=== PATIENT | female | born 1955 | race Caucasian/White ===

== ENCOUNTER → 2023-10-02 11:17 | Outpatient (REF) | payer MEDICARE, BC, SELFPAY | LOC: DHCBC HW 11:17 | PROVIDERS: ATTENDING PHYSICIAN Internal Medicine Cardiovascular Disease; FAMILY PHYSICIAN Internal Medicine | DX: I48.19 Other persistent atrial fibrillation (principal); I50.32 Chronic diastolic (congestive) heart failure | CPT/HCPCS: 93306 ==

== ENCOUNTER → 2024-04-17 10:27 | Outpatient (REF) | payer MEDICARE, BC, SELFPAY ==
[2024-04-17 11:35] LABS: % Basophils 0.5 % (0-2); % Eosinophils 0.5 % (0-6); % Immature Granulocytes 0.3 % (0-0.5); % Lymphocytes 46.4 % (20.5-51.1); % Monocytes 10.2 % (1.7-9.3); % Neutrophils 42.1 % (42.2-75.2); Absolute Basophils 0.1 10^3/uL (0-0.2); Absolute Eosinophils 0.1 10^3/uL (0-0.7); Absolute Lymphocytes 4.3 10^3/uL (1.2-3.4); Absolute Monocytes 0.9 10^3/uL (0.1-0.6); Absolute Neutrophils 3.9 10^3/uL (1.4-6.5); Hematocrit 47.7 % (37.0-47.0); Hemoglobin 16.7 g/dL (12.0-16.0); Mean Corpuscular Hgb 33.2 pg (27.0-31.0); Mean Corpuscular Volume 94.8 fL (81.0-99.0); Nucleated Red Blood Cells % 0 %; Platelet Count 151 10^3/uL (130-400); Red Blood Cell Count 5.03 10^6/uL (4.20-5.40); Red Cell Dist. Width 13.1 % (11.5-14.5); White Blood Cell Count 9.2 10^3/uL (4.8-10.8)
[2024-04-17 12:22] LABS: ALT (SGPT) 30 U/L (0-35); AST (SGOT) 66 U/L (14-36); Albumin 3.4 g/dl (3.5-5.0); Alkaline Phosphatase 197 U/L (38-126); Blood Urea Nitrogen 20 mg/dl (7-17); Calcium 9.6 mg/dl (8.4-10.2); Carbon Dioxide 38 mmol/L (22-30); Chloride 92 mmol/L (98-107); Glucose 141 mg/dl (70-99); Iron 165 ug/dl (37-170); Potassium 4.1 mmol/L (3.5-5.1); Sodium 136 mmol/L (135-145); Total Bilirubin 1.1 mg/dl (0.2-1.3); Total Protein 6.7 g/dl (6.3-8.2); Uric Acid 12.5 mg/dl (2.5-6.2)
[2024-04-17 12:31] LABS: Percent Saturation 79 % (20-50); Total Iron Binding Capacity 208 ug/dl (265-497)
[2024-04-17 12:39] LABS: Free T4 1.18 ng/dl (0.78-2.19)
[2024-04-17 12:53] LABS: TSH 1.76 uIU/ml (0.47-4.68)
[2024-04-17 14:27] LABS: Glycohemoglobin (HgbA1c) 5.2 % (4.0-5.6)
== END ==
LOC: HWLAB 10:27
PROVIDERS: ATTENDING PHYSICIAN Nurse Practitioner Gerontology; FAMILY PHYSICIAN Internal Medicine
DX: I50.32 Chronic diastolic (congestive) heart failure (principal); E79.0 Hyperuricemia without signs of inflammatory arthritis and tophaceous disease; R73.09 Other abnormal glucose; D50.9 Iron deficiency anemia, unspecified; M79.89 Other specified soft tissue disorders; E03.9 Hypothyroidism, unspecified
CPT/HCPCS: 36415; 80053; 82728; 83036; 83540; 83550; 84439; 84443; 84550; 85025

== ENCOUNTER → 2024-08-28 09:54 | Outpatient (REF) | payer MEDICARE, BC, SELFPAY | LOC: RAD 09:54 | PROVIDERS: ATTENDING PHYSICIAN Nurse Practitioner Gerontology; FAMILY PHYSICIAN Internal Medicine | DX: R29.898 Other symptoms and signs involving the musculoskeletal system (principal) | CPT/HCPCS: 93922; 93925 ==

== ENCOUNTER 2024-10-08 08:20 | Inpatient (IN) | payer MEDICARE, BC, SELFPAY ==
[2024-10-06 18:28] VITALS: BP 109/78
--- NOTE | 2024-10-06 18:59 | ED.GENMED ---
History of Present Illness
General
Chief Complaint: Musculo-Skeletal Complaint
Time Seen by Provider: 10/06/24 18:59
History of Present Illness
History of Present Illness:
TIME OF INITIAL ENCOUNTER: 7 PM
HPI: Patient presents with nontraumatic left wrist pain. She first noted discomfort 4 days ago. Today she noted more of a rash and increased pain with movement. She is not a diabetic. She does not have fevers. She is found to be tachycardic and
states she is in permanent A-fib on Eliquis.
EXAM:
GENERAL: Well appearing in no distress but appears to be bothered by the left wrist
HEENT: Moist oral mucosa
CARDIOVASCULAR: No murmurs, tachycardic heart rate, irregular rhythm, No chest wall tenderness
PULMONARY: No respiratory distress, breath sounds are clear and equal
ABDOMEN: Soft with no peritoneal signs, no tenderness
NEUROLOGIC: Excellent strength all extremities, no coordination deficits
PSYCHIATRIC: Appropriate mental status, normal insight and judgement
EXTREMITIES: Markedly decreased active range of motion due to pain at the left wrist, edema noted as well
SKIN: Marked warmth and erythema noted primarily at the left wrist more so on the volar aspect that extends to left mid forearm
NUMBER AND COMPLEXITY OF PROBLEMS ADDRESSED AT THE ENCOUNTER
� Chronic conditions affecting care: [facility], cardiomyopathy, high blood pressure, has had DVT
� Acute Exacerbation and/or Progression of Chronic Illness: This is an acute problem
� Differential Diagnosis includes: Cellulitis, low suspicion for joint infection, bacteremia (tachycardic)
AMOUNT AND/OR COMPLEXITY OF DATA TO BE REVIEWED AND ANALYZED
� I performed an independent evaluation of and my interpretation is:
EKG:
CT:
X-rays: I personally viewed left wrist x-ray which shows no acute abnormality and no clear sign of osteomyelitis
Laboratory Studies: White count 10.8, hemoglobin 11.8, 1.5, CRP 127
Other:
� Review of other/old records: The patient was admitted in the past with ischemic bowel status postresection and VDRF
� Clinical information was obtained by an independent historian: I spoke to daughter at bedside
� Prescriptions/Medications Considered but not given:
� Further testing considered but not performed:
RISK OF COMPLICATIONS AND/OR MORBIDITY OR MORTALITY OF PATIENT MANAGEMENT
� Social determinants of health affecting care: Lives at home
� Discussion with other providers: Dr. Tomas for admission
� Escalation of care including admission/observation vs risk of discharge considered: The patient is tachycardic, with markedly decreased active range of motion, concerning physical exam findings for cellulitis, and a CRP that is
markedly elevated. Will plan IV antibiotics and admission to the hospital.
ANY OTHER UPDATES:
Past History
Past History
ED Past Medical History: Arrthythmia, Psychiatric (Anxiety, possible DVT) and Other (Ventral hernia)
ED Past Surgical History: Bowel resection and Other ([place] teeth)
Social History
Tobacco: Smoker
Alcohol: None
Drug: None
Personal:
Living: alone
Employment: Not employed
Family History
Family History: Other (Noncontributory)
Phy Exam
Physical Exam
Physical Exam:
See HPI
Course
Orders/Labs/Results
Orders:
Orders
10/06/24 19:11
CR Wrist - Left Min 3 Views Urgent
Comment:
Reason For Exam: eval infection; remote fracture
10/06/24 19:31
Basic Metabolic Panel Urgent
CRP [C-Reactive Protein] Urgent
Complete Blood Count/With Diff Urgent
ESR [Erythrocyte Sed Rate] Urgent
Lactic Acid Q4H
Comment: CANCEL 2nd LACTIC ACID IF 1st LACTIC ACID IS LESS THAN 2
Blood Culture Q30M
SALTY Source: Blood/Venous
Specimen Description:
Blood Culture Q30M
SALTY Source: Blood/Venous
Specimen Description:
10/06/24 19:58
CeFAZolin 1 GRAM [Ancef] 1 gram in 5 ml IV NOW
10/06/24 20:09
Add On- LAB Urgent
Tests Added?: cRP
Abnormal Lab Results
10/06/24
19:31
RBC 3.48 L 10^6/uL
(4.20-5.40)
Hgb 11.8 L g/dL
(12.0-16.0)
Hct 33.9 L %
(37.0-47.0)
MCH 33.9 H pg
(27.0-31.0)
MPV 10.8 H fL
(7.4-10.4)
Absolute Neuts (auto) 7.5 H 10^3/uL
(1.4-6.5)
Absolute Monos (auto) 1.5 H 10^3/uL
(0.1-0.6)
Lymphocytes % 17.1 L %
(20.5-51.1)
Monocytes % 13.4 H %
(1.7-9.3)
Sodium 131 L mmol/L
(135-145)
Chloride 92 L mmol/L
(98-107)
Carbon Dioxide 33 H mmol/L
(22-30)
BUN 19 H mg/dl
(7-17)
Glucose 133 H mg/dl
(70-99)
C-Reactive Protein 126.90 H mg/L
(0.0-10.00)
10/06/24 19:31
10/06/24 19:31
Vital Signs
Initial and Last Documented VS:
Initial Vital Signs
Temp Pulse Resp BP Pulse Ox
36.8 C 105 16 109/78 99
10/06/24 18:28 10/06/24 18:28 10/06/24 18:28 10/06/24 18:28 10/06/24 18:28
Last Documented Vital Signs
Temp Pulse Resp BP Pulse Ox
36.8 C 105 16 109/78 99
10/06/24 18:28 10/06/24 18:28 10/06/24 18:28 10/06/24 18:28 10/06/24 18:28
*Critical Care Note
Total Time (30-74mins, 75-104mins- exclusive of procedures): Not Applicable
ED Attending Note
-
Portions of this chart may have been created with voice recognition software.� Occasional wrong word or��sound alike� substitutions may have occurred due to the inherent limitations of voice recognition software.
Discharge Plan
Departure
Patient Disposition: Admit
Date of Disposition: 10/06/24
Time of Disposition: 20:50
Presentation/result/management discussed w/ accepting MD/DO: Hospitalist
Discharge Problem:
Cellulitis of left upper extremity
Prescriptions:
No Action
cyanocobalamin (vitamin B-12) 1,000 MCG tablet
1,000 mcg PO DAILY
folic acid 1 MG tablet
1 mg PO DAILY
Eliquis 5 MG tablet
5 mg PO BID
therapeutic multivitamin Tablet
1 tab PO DAILY
midodrine 5 mg Tablet
5 mg PO DAILYPRN PRN (Reason: blood pressure)
digoxin 125 mcg (0.125 mg) Tablet
125 mcg PO DAILY
furosemide 20 mg Tablet
20 mg PO DAILY
metoprolol succinate 25 mg Tablet Extended Release 24 Hr
25 mg PO DAILY
cholecalciferol (vitamin D3) 25 mcg (1,000 unit) Tablet
25 mcg PO DAILY
ferrous sulfate [FeroSul] 325 mg (65 mg iron) Tablet
325 mg PO DAILY Qty: 0 0RF
Referrals:
Donta Villa MD [Family Provider] -
Interventions
Interventions:
*Risk Screen - Suicide Last Done: 10/06/24 18:31
*General Assessment Last Done: 10/06/24 18:39
*Neglect/Abuse Screening Last Done: 10/06/24 18:31
*ED COVID-19 Vaccine History Last Done: 10/06/24 18:39
ED-Musculoskeletal Assessment Last Done: 10/06/24 18:39
Discharge Date and Time
Print Language: POLISH
[2024-10-06 19:53] LABS: % Basophils 0.2 % (0-2); % Immature Granulocytes 0.2 % (0-0.5); % Lymphocytes 17.1 % (20.5-51.1); % Monocytes 13.4 % (1.7-9.3); % Neutrophils 69.1 % (42.2-75.2); Absolute Lymphocytes 1.9 10^3/uL (1.2-3.4); Absolute Monocytes 1.5 10^3/uL (0.1-0.6); Absolute Neutrophils 7.5 10^3/uL (1.4-6.5); Hematocrit 33.9 % (37.0-47.0); Hemoglobin 11.8 g/dL (12.0-16.0); Mean Corp Hgb Conc. 34.8 g/dL (33.0-37.0); Mean Corpuscular Hgb 33.9 pg (27.0-31.0); Mean Corpuscular Volume 97.4 fL (81.0-99.0); Mean Platelet Volume 10.8 fL (7.4-10.4); Nucleated Red Blood Cells % 0 %; Platelet Count 155 10^3/uL (130-400); Red Blood Cell Count 3.48 10^6/uL (4.20-5.40); Red Cell Dist. Width 13.1 % (11.5-14.5); White Blood Cell Count 10.8 10^3/uL (4.8-10.8)
[2024-10-06 20:05] LABS: Lactic Acid 1.5 mmol/L (0.7-2.0)
[2024-10-06 20:10] LABS: Blood Urea Nitrogen 19 mg/dl (7-17); Carbon Dioxide 33 mmol/L (22-30); Chloride 92 mmol/L (98-107); Glucose 133 mg/dl (70-99); Potassium 3.8 mmol/L (3.5-5.1); Sodium 131 mmol/L (135-145); eGFR > 60.00
[2024-10-06] MEDS: ANCEF 5 IV (20:35)
[2024-10-06 21:01] LABS: Erythrocyte Sed Rate 2 mm/hour (0-20)
--- NOTE | 2024-10-06 21:22 | HPS.HSE ---
Family Physician
-
Family Physician: Donta Villa
Chief Complaint
-
Left wrist redness and pain as well as swelling
History of Present Illness
This is a 69-year-old female with past medical history of persistent atrial fibrillation on Eliquis and rate control, she also has dilated cardiomyopathy, orthostatic hypotension, CKD presenting to the emergency department with left wrist swelling.
Patient report onset of symptom 1 day ago. She has a prior wrist fracture several years ago. She denies any incident injury, falls or twist. She denies any insect bites. She has not had any fevers or chills. When she arose this morning she saw
increased redness and swelling. She decided to come to the emergency department for evaluation.
Patient notes that she has been having difficulty walking due to the pain as she uses a walker and she has been sitting with increased swelling in her legs.
In the emergency department she was afebrile, blood pressure was 110/78 with a pulse of 85, respiratory rate was 16 and she was satting 98% on room air. CBC was unremarkable. Electrolytes BUN/creatinine were all in the normal range. X-ray shows
no injuries
Medical History
Past Medical History
Past Medical History: Reports Other (PMH HTN, CKD 3B, A-fib, DVT/PE 07/24/20202014, COPD, GERD, migraines, impaired vision, anxietyhypoxic/hypercapnic respiratory failure requiring mechanical vent, health care associated pneumonia with E. coli ,
COPD exacerbation cardiogenic shock with A-fib/cardioversion 09/22 requiring pressor suppor)
Past Surgical History: Reports Other ([place] teeth extraction, cataracts, bronchoscopy 10/02/2022)
Social History
Tobacco: Smoker (1/2 pack/day times 40 years)
Alcohol: Daily (Drinks 3 to 4 ounces gin and tonic daily +2 ounces of Yohana -last drink 09/18/2022)
Drug: None
Personal: Single
Living: Alone
Employment: Retired
Family History
Family History: Not pertinent and Other (Father age 38 complications amputation)
Allergies / Home Medications
Allergies reflects when Allergies were last updated in [facility]-box.
Home Medications with original date entered in boo-box
Allergy/Medication List:
Allergies
Allergy/AdvReac Type Severity Reaction Status Date / Time
adhesive Allergy Unknown Verified 10/14/22 19:06
latex Allergy Rash Verified 10/14/22 19:06
Home Medications
apixaban 5 mg tablet (Eliquis) 5 mg PO BID Blood clot prevention/tx 10/15/16
cyanocobalamin (vitamin B-12) 1,000 mcg tablet 1,000 mcg PO DAILY Supplement 10/15/16
folic acid 1 mg tablet 1 mg PO DAILY Supplement 10/15/16
therapeutic multivitamin 1 tab PO DAILY Supplement 10/14/22
ferrous sulfate 325 mg (65 mg iron) tablet (FeroSul) 325 mg PO DAILY #0 tabs 11/09/22
cholecalciferol (vitamin D3) 25 mcg (1,000 unit) tablet 25 mcg PO DAILY 10/06/24
digoxin 125 mcg (0.125 mg) tablet 125 mcg PO DAILY 10/06/24
furosemide 20 mg tablet 20 mg PO DAILY 10/06/24
metoprolol succinate 25 mg tablet,extended release 24 hr 25 mg PO DAILY 10/06/24
midodrine 5 mg tablet 5 mg PO DAILYPRN PRN blood pressure 10/06/24
Review of Systems
-
History Source: Patient
Constitutional: Reports No Symptoms
EENT: Reports No Symptoms
Respiratory: Reports No Symptoms
Cardiac: Reports No Symptoms
Abdomen/GI: Reports No Symptoms
Musculoskeletal: Reports Joint Pain and Joint Swelling
Skin: Reports Rash
Neurological: Reports No Symptoms
Endocrine: Reports No Symptoms
Hematologic/Lymphatic: Reports No Symptoms
Psych: Reports No Symptoms
Physical Exam
Vital Signs
Vital Signs
Temp Pulse Resp BP Pulse Ox
98.3 F 105 16 109/78 99
10/06/24 18:28 10/06/24 18:28 10/06/24 18:28 10/06/24 18:28 10/06/24 18:28
Physical Exam
General: Well Developed, Well Nourished, No Apparent Distress and Comfortable
HEENT: NormoCephalic, Anicteric, Moist mucous membranes and Atraumatic
Respiratory: Clear
Cardiac: S1/S2 and Regular Rhythm
Breast: Deferred by me
GI: Soft, Non Tender, Non Distended and Normal Bowel Sounds
Rectal: Deferred by Provider
Genito-urinary: Deferred by me
Musculoskeletal: No Clubbing, No Cyanosis, Edema, Left Lower Extremity and Edema, Right Lower Extremity
Skin: Warm and Rash (Left hand erythema, mild edema, she has normal range of motion on the wrist, no effusion, no induration or abscess. )
Neuro: AO x 3 and Nonfocal/grossly intact
Hematologic/Lymphatic: No Lymphadenopathy
Psych: Calm
Laboratory Results
-
10/06/24 19:31
10/06/24 19:31
Laboratory Results
Lactic Acid 1.5 mmol/L (0.7-2.0) 10/06/24 19:31
Lactic Acid Cancelled 10/06/24 19:31
Data Reviewed
-
Diagnostic Radiology: Image Personally Visualized and interpreted
Lab Data: Labs Reviewed by me
Old Records: Reviewed
Impression/Plan
-
IMPRESSION:
69-year-old female with history of persistent atrial fibrillation on anticoagulation, dilated cardiomyopathy, chronically on digoxin and anticoagulation, polycythemia vera, presenting to the emergency department with acute onset of left hand and
wrist erythema and mild swelling consistent with acute cellulitis. The joint itself does not appear to be inflamed without any reduced to range of motion or effusion. X-ray is negative for any injury. She is afebrile, hemodynamically stable and
has no leukocytosis.
PLAN:
1. Cellullitis
- admit to med/surg observation
- blood cultures if spike fever
- given no recent abx or hospitalizations and no diabetes, will start cefazolin for now
- elevate left hand
- pain control
2. Permanent AFIB
- continue digoxin
- continue metoprolol
- continue eliquis
3. 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 No weight gain
- continue lasix 20 daily
- continue metoprolol
- midodrine prn
DVT PPX - on apixaban
Code status - full code
[2024-10-06] MEDS: ELIQUIS 5 MG PO (21:29)
[2024-10-06 22:40] VITALS: BP 101/67; BMI 23.5
[2024-10-07 00:10] VITALS: BMI 23.5
--- NOTE | 2024-10-07 01:09 | PTCARENOTE ---
Pt received from ER [email or web address] able to make her needs known.Denies pain at this time.Left hand elevated on a pillow. Pt oriented to room and call mackenzie in reach.Plan of care continued.
[2024-10-07] MEDS: ANCEF 10 IV ×3 (05:09→19:39)
[2024-10-07 06:00] VITALS: BMI 23.7
[2024-10-07 07:00] VITALS: BP 100/65
[2024-10-07 07:45] LABS: Blood Urea Nitrogen 17 mg/dl (7-17); Calcium 8.3 mg/dl (8.4-10.2); Carbon Dioxide 32 mmol/L (22-30); Chloride 100 mmol/L (98-107); Estimated Creatinine Clearance 74 ml/min; Glucose 87 mg/dl (70-99); Hematocrit 29.4 % (37.0-47.0); Hemoglobin 10.4 g/dL (12.0-16.0); Mean Corp Hgb Conc. 35.4 g/dL (33.0-37.0); Mean Corpuscular Hgb 34.3 pg (27.0-31.0); Mean Platelet Volume 11.4 fL (7.4-10.4); Platelet Count 131 10^3/uL (130-400); Potassium 3.6 mmol/L (3.5-5.1); Red Blood Cell Count 3.03 10^6/uL (4.20-5.40); Sodium 132 mmol/L (135-145); White Blood Cell Count 8.1 10^3/uL (4.8-10.8); eGFR > 60.00
[2024-10-07] MEDS: VITAMIN D3 (cholecalciferol) 25 MCG PO (08:35)
[2024-10-07] MEDS: TOPROL XL 25 MG PO (08:35)
[2024-10-07] MEDS: THERAGRAN 1 TABLET PO (08:35)
[2024-10-07] MEDS: LASIX 20 MG PO (08:35)
[2024-10-07] MEDS: FEOSOL 325 MG PO (08:35)
[2024-10-07] MEDS: ELIQUIS 5 MG PO ×2 (08:35→19:39)
[2024-10-07] MEDS: VITAMIN B-12 1000 MCG PO (08:35)
[2024-10-07] MEDS: FOLVITE 1 MG PO (08:36)
--- NOTE | 2024-10-07 11:03 | W.PN.HOSP.TC ---
Today's Communication/Plan
-
Monitor vital signs see plan
Continue antibiotics
Monitor symptoms closely
ID and orthopedics evaluation
Uric acid
Assessment / Plan
Assessment / Plan
General: Well Developed, Well Nourished, No Apparent Distress and Comfortable
HEENT: NormoCephalic, Anicteric, Moist mucous membranes and Atraumatic
Respiratory: Clear
Cardiac: S1/S2 and Regular Rhythm
GI: Soft, Non Tender, Non Distended and Normal Bowel Sounds
Musculoskeletal: No Clubbing, No Cyanosis, Edema, Left Lower Extremity and Edema, Right Lower Extremity
Skin: Warm and Rash (Left hand/wrist erythema, Limited range of motion )
Neuro: AO x 3 and Nonfocal/grossly intact
Psych: Calm
Cellullitis
Left wrist/hand erythema and swelling with possible cellulitis
would need to monitor closely for septic arthritis
Continue with antibiotics
Consult infectious disease and orthopedics given hand swelling and pain with limited motion
- given no recent abx or hospitalizations and no diabetes, cw ancef for now; low threshold for escalating abx
CXR noted; elevated CRP
consider MRI if doesnt improve
no hx of gout per patient; check uric acid
- elevate left hand
- pain control
Permanent AFIB
- continue digoxin
- continue metoprolol
- continue eliquis
hyponatremia
montior
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 No weight gain
- continue lasix 20 daily
- continue metoprolol
- midodrine prn
Anemia
Continue to monitor
DVT PPX - on apixaban
Code status - full code
I spent a total of 52 minutes with the patient or on the floor. More than 50% of this time involved counseling and coordination of care.
Anticipated Discharge: > 48 hours
Subjective/Interval History
-
Date of Service: October 07, 2024
has some pain
Objective Data
-
Labs:
Laboratory Results
10/07/24
07:04
WBC 8.1
Hgb 10.4 L
Hct 29.4 L
Plt Count 131
Sodium 132 L
Potassium 3.6
Chloride 100
Carbon Dioxide 32 H
BUN 17
Creatinine 0.7
Glucose 87
Calcium 8.3 L
Vital Signs:
Vital Signs
Temp Pulse Resp BP Pulse Ox
99.1 F 96 18 119/66 95
10/07/24 07:00 10/07/24 08:35 10/07/24 07:00 10/07/24 08:35 10/07/24 08:40
I&O
10/06/24 10/07/24 10/08/24
06:59 06:59 06:59
Intake Total 240 / 240
Balance 240 / 240
--- NOTE | 2024-10-07 11:53 | CON.ORTHO ---
Consultation
-
Date/Time Consultation Requested: 10/07/24 @1115am
Date/Time Consultation Performed: 10/07/24 @1130am
Requesting Provider: Luan
Performing Provider: Winsome Blanco PA-C, Gerard Humphries MD
Reason for Consultation: left wrist and hand pain
Consultation - Orthopedics
History
HPI: 69yo female admitted to [facility] for left wrist and hand pain. She reports that on Saturday night she woke in the middle of the night due to pain in her left wrist and hand. This worsened over the next few days and she began developing
redness. She presented to the ER yesterday for evaluation. She has been started on IV ancef. She is not sure if she has noticed much of a difference however she reports that she has been avoiding moving her hand due to anticipated pain. She denies
any known injury or breaks in her skin. She is right hand dominant
PAST MEDICAL HISTORY: Afib, blood clots, HTN, CKD 3B, COPD, GERD, migraines, impaired vision, anxiety, hypoxic/hypercapnic respiratory failure requiring mechanical vent, health care associated pneumonia with E. coli , COPD exacerbation cardiogenic
shock with A-fib/cardioversion 09/22 requiring pressor support
PAST SURGICAL HISTORY: wisdom teeth extraction, cataracts
SOCIAL HISTORY: denies tobacco, alcohol, lives at home alone, she has been ambulating with rolling walker recently
FAMILY HISTORY: Non contributory
REVIEW OF SYSTEMS: 12 point review of systems obtained and negative except those mentioned in the HPI
Allergies / Home Medications
Allergy/AdvReac Type Severity Reaction Status Date / Time
adhesive Allergy Unknown Verified 10/14/22 19:06
latex Allergy Rash Verified 10/14/22 19:06
�Medication �Instructions �Recorded
apixaban 5 mg tablet (Eliquis) 5 mg PO BID Blood clot 10/15/16
prevention/tx
cyanocobalamin (vitamin B-12) 1,000 mcg PO DAILY Supplement 10/15/16
1,000 mcg tablet
folic acid 1 mg tablet 1 mg PO DAILY Supplement 10/15/16
therapeutic multivitamin 1 tab PO DAILY Supplement 10/14/22
ferrous sulfate 325 mg (65 mg 325 mg PO DAILY #0 tabs 11/09/22
iron) tablet (FeroSul)
cholecalciferol (vitamin D3) 25 25 mcg PO DAILY 10/06/24
mcg (1,000 unit) tablet
digoxin 125 mcg (0.125 mg) tablet 125 mcg PO DAILY 10/06/24
furosemide 20 mg tablet 20 mg PO DAILY 10/06/24
metoprolol succinate 25 mg 25 mg PO DAILY 10/06/24
tablet,extended release 24 hr
midodrine 5 mg tablet 5 mg PO DAILYPRN PRN blood pressure 10/06/24
Vital Signs / Lab Results
Temp Pulse Resp BP Pulse Ox
99.1 F 96 18 119/66 98
10/07/24 07:00 10/07/24 08:35 10/07/24 07:00 10/07/24 08:35 10/07/24 11:45
10/07/24 07:04
10/07/24 07:04
RADIOGRAPHIC FINDINGS:
Xrays left wrist show old healed distal radius fracture. No acute fractures. 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 Soft tissue swelling. No evidence for bony destruction. No evidence for periarticular erosions
PHYSICAL EXAM:
General: no acute distress
HEENT: NCAT, sclera anicteric, normal hearing
Heart: No JVD
Lungs: normal work of breathing on room air
MSK: Directed exam of left hand and wrist with erythema to dorsal wrist extending to dorsal hand, thumb, and index finger. No fluctuance. +TTP over the area of erythema. Able to perform ROM of the wrist however this is uncomfortable. Sensation
intact to light touch. Cap refill <2secs
Assessment / Plan
ASSESSMENT/PLAN:
Ms. Hi is a 69yo female admitted to [facility] for left wrist and hand pain. She does have some erythema to the dorsal hand and wrist. She is currently on IV Ancef. Ordered MRI to assess for joint effusion. Likely dealing with
cellulitis versus pseudogout. Recommend continued observation and wrist brace. Order placed for brace. Patient may work with PT/OT as able. Encouraged her to perform range of motion of the hand and wrist as tolerated. Continue with ice, elevation,
and pain medications as needed. Will follow up results of MRI.
[2024-10-07 12:00] LABS: Uric Acid 9.6 mg/dl (2.5-6.2)
--- NOTE | 2024-10-07 12:05 | CM ---
Met with patient and spoke to ORtho PA. Patient lives alone in 2 level home with one step to enter. She has all living on first floor. Her laundry is on second floor. Her daughter helps with laundry. DaughterKimberly is the POA.
Patient uses tub transfer bench. SHe said she has started to use rolling walker recently as she has felt weak in her legs. Now with left wrist cellulitis she feels she cannot bear full weight to use rolling walker.
CM asked Ortho PA to ask for PT to eval for adaptation to walker.
She also has a cane.
She went to [facility] inpatient in 2022. then d/c to [facility]. then to daughter's home attending out patient therapy at .
She has no history of VNA.
PCP Dr. Medina
Pharmacy: [facility].
Patient hopes to go back home. Her daughter is very supportive.
Patient is observation status. Reviewed AVILA with her.
PLAN: HOme, may need home care.
[2024-10-07] MEDS: LANOXIN 125 MCG PO (12:23)
[2024-10-07] MEDS: FLUSH (NSS) 1 FLUSH IV (12:41)
--- NOTE | 2024-10-07 13:30 | PTOTSP ---
Received order for PT and reviewed chart. Awaiting MRI left wrist and brace. Will hold PT today and follow up tomorrow. Needs OT order and weightbearing status.
[2024-10-07 15:32] VITALS: BP 96/61
--- NOTE | 2024-10-07 16:10 | CON.ID ---
Consultation
-
Date/Time Consultation Requested: 10/07/2024 1102
Date/Time Consultation Performed: 10/07/2024 1430
Requesting Provider: Dr. Roland
Performing Provider: Dr. Landrum
Reason for Consultation: Left wrist pain/swelling/erythema
Chief Complaint / Past History
History of Present Illness
Umm Hi is a 69-year-old female with a significant past medical history of A-fib, cardiomyopathy and CKD being evaluated at the request of Dr. Roland in regards to left wrist swelling and pain. History is obtained from chart review, along with
patient interview.
The patient reports she was in her usual state of health until 5 days ago when she recalls waking up and having pain in her left wrist. At this point in time she denied any swelling or redness. She denies any antecedent trauma or prior history of
monoarticular swelling. The discomfort persisted, until yesterday when there was increased swelling and now the left wrist became erythematous, with increased overall discomfort. She was prompted by her family to come to the hospital and receive
further evaluation. During this period of time she denies any fevers or chills. She denies any trauma to the area.
She does admit to a history of elevated uric acid, and notes that her PCP in the past has had her on antigout medications. She has not taken any medication for gout in the past 6 months or so.
There are no pets in the house. She denies any axillary discomfort.
Past History
Additional Past Medical History:
A-fib (on Eliquis)
Cardiomyopathy
Orthostatic hypotension
CKD stage IIIb
COPD
Hx headaches/migraines
Additional Past Surgical History:
Bowel surgery
Bronchoscopy
Left wrist fracture (2022)
Allergy History:
adhesive Allergy (Verified 10/14/22 19:06)
Unknown
latex Allergy (Verified 10/14/22 19:06)
Rash
Medications Reviewed: Yes
Current Antibiotics:
Cefazolin 2 g IV every 8 hours
Social History
Tobacco: Smoker (1/2 pack/day)
Alcohol: Daily
Drug: None
Personal:
Living: Alone
Employment: Retired
Review of Systems
Vital Signs
Temp Pulse Resp BP Pulse Ox
98.8 F 80 18 96/61 95
10/07/24 15:32 10/07/24 15:32 10/07/24 15:32 10/07/24 15:32 10/07/24 15:32
Physical Exam
Physical Exam
Constitutional: No Acute Distress and Non-toxic
Oral: No Thrush and No Ulcers
Cardiovascular: S1/S2; Negative S3/S4
Pulmonary: Non Labored
Gastrointestinal: Non Tender and Non Distended
Extremities: Edema (Left hand, wrist and forearm), Erythema (Left hand, wrist and distal forearm) and Pulses
Skin: Warm and Dry; Negative Rash
Neurological: Awake and Alert
Psychological: Calm
Lab / Diagnostic Study Results
10/07/24 07:04
10/07/24 07:04
Abs Immat Gran (auto) 0.0 10^3/uL (0-0.05) 10/06/24 19:31
Absolute Neuts (auto) 7.5 10^3/uL (1.4-6.5) H 10/06/24 19:31
Absolute Lymphs (auto) 1.9 10^3/uL (1.2-3.4) 10/06/24 19:31
Absolute Monos (auto) 1.5 10^3/uL (0.1-0.6) H 10/06/24 19:31
Absolute Basos (auto) 0.0 10^3/uL (0-0.2) 10/06/24 19:31
Immature Gran % 0.2 % (0-0.5) 10/06/24 19:31
Neutrophils % 69.1 % (42.2-75.2) 10/06/24
Lymphocytes % 17.1 % (20.5-51.1) L 10/06/24
Monocytes % 13.4 % (1.7-9.3) H 10/06/24
Eosinophils % 0.0 % (0-6) 10/06/24
Basophils % 0.2 % (0-2) 10/06/24
ESR 2 mm/hour (0-20) 10/06/24
Lactic Acid 1.5 mmol/L (0.7-2.0) 10/06/24
Lactic Acid Cancelled 10/06/24
C-Reactive Protein 126.90 mg/L (0.0-10.00) H 10/06/24
Microbiology Results
Micro:
10/06/24 Blood Culture - Pending
Blood/Venous
10/06/24 Blood Culture - Pending
Blood/Venous
Imaging:
10/06/2024 X-ray left wrist: Slight deformity of the left distal radius compatible with old healed fracture. The scapholunate space measures 3 mm, considered equivocal for scapholunate ligament injury. There is moderate to severe degenerative
change of the first carpometacarpal joint, slightly progressing since previous examination. Mild degenerative change of the scaphoid trapezium articulation. Soft tissue swelling is present which appears to be greater medially and dorsally. No bony
destruction is identified. No periarticular erosions are identified.
Assessment / Plan
Left wrist swelling/erythema
Suspected left wrist cellulitis
- At present, cannot rule out crystal arthropathy
Elevated uric acid
A-fib (on Eliquis)
Cardiomyopathy
Orthostatic hypotension
CKD stage IIIb
COPD
Recommendations:
Continue with cefazolin for today.
Upper extremity elevation.
Await MRI.
Monitor white count temperature curve.
[2024-10-07 23:31] VITALS: BP 97/59
[2024-10-08] MEDS: ANCEF 10 IV ×2 (04:22→13:09)
[2024-10-08 06:41] LABS: % Basophils 0.5 % (0-2); % Eosinophils 0.6 % (0-6); % Immature Granulocytes 0.4 % (0-0.5); % Lymphocytes 32.6 % (20.5-51.1); % Monocytes 10.7 % (1.7-9.3); % Neutrophils 55.2 % (42.2-75.2); Absolute Eosinophils 0.1 10^3/uL (0-0.7); Absolute Lymphocytes 2.7 10^3/uL (1.2-3.4); Absolute Monocytes 0.9 10^3/uL (0.1-0.6); Absolute Neutrophils 4.6 10^3/uL (1.4-6.5); Hematocrit 30.3 % (37.0-47.0); Hemoglobin 10.6 g/dL (12.0-16.0); Mean Corpuscular Hgb 34.2 pg (27.0-31.0); Mean Corpuscular Volume 97.7 fL (81.0-99.0); Nucleated Red Blood Cells % 0 %; Platelet Count 142 10^3/uL (130-400); White Blood Cell Count 8.4 10^3/uL (4.8-10.8)
[2024-10-08 07:08] LABS: Blood Urea Nitrogen 13 mg/dl (7-17); Calcium 8.2 mg/dl (8.4-10.2); Carbon Dioxide 31 mmol/L (22-30); Chloride 100 mmol/L (98-107); Estimated Creatinine Clearance 74 ml/min; Glucose 85 mg/dl (70-99); Potassium 3.6 mmol/L (3.5-5.1); Sodium 131 mmol/L (135-145); eGFR > 60.00
--- NOTE | 2024-10-08 07:27 | W.PN.UPDATE ---
Update Note
Progress Note Update
Orthopedic Surgery:
Patient relates that swelling, redness and pain have improved dramatically. She is able to move her fingers much better this morning. No fevers or chills and she has completed her MRI. She is afebrile and vital signs remained stable. Left
hand/wrist edema with erythema which has improved. Edema/erythema primarily in the thumb, index and small fingers. No involvement of the ring finger. She is able to flex and extend her fingers but cannot make a complete fist. She is able to flex
and extend her wrist without limitations. Generalized pain noted throughout the hand and wrist. Distal neurovascular was intact.
MRI of the left wrist dated October 07, 2024 shows moderate to advanced degenerative changes throughout. There is soft tissue swelling in the dorsum of the wrist/hand but no abscess or osteomyelitis noted.
A/p Left wrist/hand cellulitis
No surgical intervention at the moment but continue with antibiotics per ID and observation. Warm compress along with elevation. She does have rings on her ring finger which does not have any swelling. If swelling noted in this region rings will
need to be cut off. Patient and nurse aware and will observe for now. Orthopedics to continue to follow along for now.
[2024-10-08 08:16] VITALS: BP 104/75
[2024-10-08] MEDS: TOPROL XL 25 MG PO (08:17)
[2024-10-08] MEDS: VITAMIN B-12 1000 MCG PO (08:17)
[2024-10-08] MEDS: FOLVITE 1 MG PO (08:17)
[2024-10-08] MEDS: ELIQUIS 5 MG PO ×2 (08:17→21:29)
[2024-10-08] MEDS: THERAGRAN 1 TABLET PO (08:17)
[2024-10-08] MEDS: VITAMIN D3 (cholecalciferol) 25 MCG PO (08:17)
[2024-10-08] MEDS: FEOSOL 325 MG PO (08:17)
[2024-10-08] MEDS: LASIX 20 MG PO (08:17)
[2024-10-08 09:25] VITALS: BMI 23.4
[2024-10-08 09:42] VITALS: BP 82/53; BP 95/62; PULSE 89; PULSE 94
--- NOTE | 2024-10-08 11:14 | W.PN.HOSP.TC ---
Today's Communication/Plan
-
monitor vitals
see plan
cw abx for now
monitor hand/wrist swelling and erythema
if sx dont improve then consider prednisone
Assessment / Plan
Assessment / Plan
General: Well Developed, Well Nourished, No Apparent Distress and Comfortable
HEENT: NormoCephalic, Anicteric, Moist mucous membranes and Atraumatic
Respiratory: Clear
Cardiac: S1/S2 and Regular Rhythm
GI: Soft, Non Tender, Non Distended and Normal Bowel Sounds
Musculoskeletal: No Clubbing, No Cyanosis, Edema, Left Lower Extremity and Edema, Right Lower Extremity
Skin: Warm and Rash (Left hand/wrist erythema, Limited range of motion )
Neuro: AO x 3 and Nonfocal/grossly intact
Psych: Calm
Cellulitis
Left wrist/hand erythema and swelling with possible cellulitis
would need to monitor closely for septic arthritis
Continue with antibiotics
Consult infectious disease and orthopedics given hand swelling and pain with limited motion
- given no recent abx or hospitalizations and no diabetes, cw ancef for now; ID following
CXR noted; elevated CRP
MRI 3/5 with moderate to advanced degenerative changes. Soft tissue swelling in the dorsum of the wrist/hand. No osteomyelitis noted. no surgical intervention planned by ortho
no hx of gout per patient; uric acid high, she has intolerance to allopurinol and colchicine per patient. if symptoms dont improve then consider starting prednisone
- elevate left hand
- pain control
Permanent AFIB
- continue digoxin
- continue metoprolol
- continue eliquis
hyponatremia
montior
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 No weight gain
- continue lasix 20 daily
- continue metoprolol
- midodrine prn
Anemia
Continue to monitor
DVT PPX - on apixaban
Code status - full code
Anticipated Discharge: 24 - 48 hours
Subjective/Interval History
-
Date of Service: October 08, 2024
has some pain
Objective Data
-
Labs:
Laboratory Results
10/08/24 10/08/24
05:47 05:48
WBC 8.4
Hgb 10.6 L
Hct 30.3 L
Plt Count 142
Sodium 131 L
Potassium 3.6
Chloride 100
Carbon Dioxide 31 H
BUN 13
Creatinine 0.7
Glucose 85
Calcium 8.2 L
Vital Signs:
Vital Signs
Temp Pulse Resp BP Pulse Ox
99.7 F 99 18 104/75 98
10/08/24 08:16 10/08/24 08:16 10/08/24 08:16 10/08/24 08:16 10/08/24 08:16
I&O
10/07/24 10/08/24 10/09/24
06:59 06:59 06:59
Intake Total 720 / 720
Balance 720 / 720
[2024-10-08] MEDS: LANOXIN 125 MCG PO (13:09)
[2024-10-08] MEDS: FLUSH (NSS) 2 FLUSH IV (13:09)
--- NOTE | 2024-10-08 14:00 | W.PN.ID1 ---
Date of Service
Date of Service: October 08, 2024
Today's Communication
Change antibiotics to Keflex.
Assessment / Plan
Left wrist swelling/erythema
Suspected left wrist cellulitis
- At present, cannot rule out crystal arthropathy
Elevated uric acid
A-fib (on Eliquis)
Cardiomyopathy
Orthostatic hypotension
CKD stage IIIb
COPD
Recommendations:
Clinical appearance appears to be more consistent with acute crystal arthropathy rather than cellulitis.
Continue with upper extremity elevation.
Monitor white count temperature curve.
Narrow antibiotics to Keflex 500 mg 4 times daily for an additional 5 days.
Would consider therapy for acute crystal arthropathy (gout versus CPPD)
Chief Complaint
-: Cellulitis
Subjective / Review of Systems
Patient seen and examined. Increased swelling of left middle PIP joint overnight.
Review of Systems: No Fever and No Chills
Vital Signs / Physical Exam
Vital Signs
Vital Signs
Temp Pulse Resp BP Pulse Ox
99.7 F 99 18 104/75 98
10/08/24 08:16 10/08/24 08:16 10/08/24 08:16 10/08/24 08:16 10/08/24 08:16
Physical Exam
Constitutional: No Acute Distress, Comfortable and Non-toxic
Eyes: No Conjunctival Hemorrhage and Sclera Anicteric
Cardiovascular: S1/S2; Negative S3/S4
Pulmonary: Non Labored
Extremities: Edema (Left hand and wrist area.) and Erythema (Left hand and wrist area)
Musculoskeletal: Joint Swelling (Left third PIP)
Neurological: Awake and Alert
Objective Data
Lab Data
Lab Results
10/08/24 05:47
10/08/24 05:48
ESR 2 mm/hour (0-20) 10/06/24 19:31
Estimated Creat Clear 74 ml/min 10/08/24 05:48
Lactic Acid 1.5 mmol/L (0.7-2.0) 10/06/24 19:
Lactic Acid Cancelled 10/06/24 19:
C-Reactive Protein 126.90 mg/L (0.0-10.00) H 10/06/24 19:
Most recent labs reviewed.
Micro Results:
10/06/24 19: Blood Culture - Preliminary
Blood/Venous No Growth in 24 hours- Final report to follow
10/06/24 19: Blood Culture - Preliminary
Blood/Venous No Growth in 24 hours- Final report to follow
Imaging:
10/06/2024 X-ray left wrist: Slight deformity of the left distal radius compatible with old healed fracture. The scapholunate space measures 3 mm, considered equivocal for scapholunate ligament injury. There is moderate to severe degenerative
change of the first carpometacarpal joint, slightly progressing since previous examination. Mild degenerative change of the scaphoid trapezium articulation. Soft tissue swelling is present which appears to be greater medially and dorsally. No bony
destruction is identified. No periarticular erosions are identified.
Care Review
Plan reviewed with: Physician (Hospitalist)
[2024-10-08] MEDS: DELTASONE 40 MG PO (14:56)
--- NOTE | 2024-10-08 16:05 | CM ---
Pt changed to inpatient IMM given and explained IMM signed on chart.
Spoke with pt and dgt in room.
PT OT indicated VN .
Will offer VN .
PLAN Home with VN
[2024-10-08 16:13] VITALS: BP 83/61
[2024-10-08 17:00] VITALS: BP 95/64
--- NOTE | 2024-10-08 17:05 | W.PN.UPDATE ---
Update Note
Progress Note Update
Patient seen and examined
Agree with Dr. Landrum's assessment.
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
If patient improves with steroids, she can be discharged home and follow up as outpatient.
Consider rheumatology follow up as well
[2024-10-08] MEDS: KEFLEX 500 MG PO ×2 (17:40→21:28)
[2024-10-08 23:40] VITALS: BP 96/60
[2024-10-09 04:49] VITALS: BMI 23.0
[2024-10-09 06:28] LABS: % Basophils 0.1 % (0-2); % Eosinophils 0.1 % (0-6); % Immature Granulocytes 0.3 % (0-0.5); % Lymphocytes 32.2 % (20.5-51.1); % Monocytes 11.2 % (1.7-9.3); % Neutrophils 56.1 % (42.2-75.2); Absolute Lymphocytes 2.2 10^3/uL (1.2-3.4); Absolute Monocytes 0.8 10^3/uL (0.1-0.6); Absolute Neutrophils 3.8 10^3/uL (1.4-6.5); Hematocrit 30.1 % (37.0-47.0); Hemoglobin 10.9 g/dL (12.0-16.0); Mean Corp Hgb Conc. 36.2 g/dL (33.0-37.0); Mean Corpuscular Hgb 34.5 pg (27.0-31.0); Mean Corpuscular Volume 95.3 fL (81.0-99.0); Mean Platelet Volume 12.2 fL (7.4-10.4); Nucleated Red Blood Cells % 0 %; Platelet Count 160 10^3/uL (130-400); Red Blood Cell Count 3.16 10^6/uL (4.20-5.40); Red Cell Dist. Width 12.3 % (11.5-14.5); White Blood Cell Count 6.8 10^3/uL (4.8-10.8)
[2024-10-09 07:00] VITALS: BP 106/72
[2024-10-09 07:00] LABS: Blood Urea Nitrogen 13 mg/dl (7-17); Calcium 8.4 mg/dl (8.4-10.2); Carbon Dioxide 30 mmol/L (22-30); Chloride 98 mmol/L (98-107); Estimated Creatinine Clearance 74 ml/min; Glucose 113 mg/dl (70-99); Potassium 3.7 mmol/L (3.5-5.1); Sodium 134 mmol/L (135-145); eGFR > 60.00
--- NOTE | 2024-10-09 08:33 | W.PN.UPDATE ---
Update Note
Progress Note Update
Patient was seen and examined this morning; report significant proving of her symptoms with differential diagnosis of crystal arthropathy. Recommend continuing treatment plan as ordered; orthopedic surgery will follow peripherally with no surgical
indications at this time
[2024-10-09] MEDS: VITAMIN D3 (cholecalciferol) 25 MCG PO (08:45)
[2024-10-09] MEDS: ELIQUIS 5 MG PO (08:45)
[2024-10-09] MEDS: TOPROL XL 25 MG PO (08:45)
[2024-10-09] MEDS: PROTONIX 40 MG PO (08:45)
[2024-10-09] MEDS: KEFLEX 500 MG PO (08:45)
[2024-10-09] MEDS: FEOSOL 325 MG PO (08:45)
[2024-10-09] MEDS: DELTASONE 40 MG PO (08:45)
[2024-10-09] MEDS: THERAGRAN 1 TABLET PO (08:45)
[2024-10-09] MEDS: LASIX 20 MG PO (08:45)
[2024-10-09] MEDS: FOLVITE 1 MG PO (08:45)
[2024-10-09] MEDS: VITAMIN B-12 1000 MCG PO (08:46)
--- NOTE | 2024-10-09 09:36 | W.PN.ID1 ---
Date of Service
Date of Service: October 09, 2024
Today's Communication
Treat gout. DC cephalexin.
Assessment / Plan
Left hand swelling/erythema
Acute gout flare
Elevated uric acid
A-fib (on Eliquis)
Cardiomyopathy
Orthostatic hypotension
CKD stage IIIb
COPD
Recommendations:
Clinical appearance appears to be more consistent with acute crystal arthropathy rather than cellulitis.
Condition responding to steroid.
Note, pt with history of gout but unable to tolerate allopurinol nor colchicine.
Agree with outpatient Rheumatology referral.
DC cephalexin.
Chief Complaint
-: Other (gout)
Subjective / Review of Systems
She reports left hand much improved - less swelling and pain.
Vital Signs / Physical Exam
Vital Signs
Vital Signs
Temp Pulse Resp BP Pulse Ox
98 F 88 16 106/72 98
10/09/24 07:00 10/09/24 08:45 10/09/24 07:00 10/09/24 08:45 10/09/24 07:00
Physical Exam
Constitutional: No Acute Distress and Comfortable
Pulmonary: Clear
Gastrointestinal: Soft, Non Tender, Non Distended and Normal Bowel Sounds
Extremities: Other (left middle finger PIPJ + induration, erythema enrire finger extending to MCP. Other finger joints mild induration.)
Neurological: AO x 3
Objective Data
Lab Data
Lab Results
10/09/24 05:12
10/09/24 05:12
ESR 2 mm/hour (0-20) 10/06/24 19:31
Estimated Creat Clear 74 ml/min 10/09/24 05:12
Lactic Acid 1.5 mmol/L (0.7-2.0) 10/06/24 19:31
Lactic Acid Cancelled 10/06/24 19:31
C-Reactive Protein 126.90 mg/L (0.0-10.00) H 10/06/24 19:31
Most recent labs reviewed.
Micro Results:
10/06/24 19:31 Blood Culture - Preliminary
Blood/Venous No Growth in 48 hours- Final report to follow
10/06/24 19:31 Blood Culture - Preliminary
Blood/Venous No Growth in 48 hours- Final report to follow
Imaging:
10/06/2024 X-ray left wrist: Slight deformity of the left distal radius compatible with old healed fracture. The scapholunate space measures 3 mm, considered equivocal for scapholunate ligament injury. There is moderate to severe degenerative
change of the first carpometacarpal joint, slightly progressing since previous examination. Mild degenerative change of the scaphoid trapezium articulation. Soft tissue swelling is present which appears to be greater medially and dorsally. No bony
destruction is identified. No periarticular erosions are identified.
--- NOTE | 2024-10-09 10:16 | W.PN.HOSP.TC ---
Addendum entered and electronically signed by Mohan Roland MD 10/09/24 10:34:
Acute gout flare
Addendum entered and electronically signed by Mohan Roland MD 10/09/24 10:33:
Discussed with daughter over the phone
Original Note:
Today's Communication/Plan
-
Monitor vital signs see plan
Discharged on oral prednisone
Discussed with orthopedics, infectious disease
Monitor off antibiotics
Discharge today
Time of discharge 38 minutes
Assessment / Plan
Assessment / Plan
General: Well Developed, Well Nourished, No Apparent Distress and Comfortable
HEENT: NormoCephalic, Anicteric, Moist mucous membranes and Atraumatic
Respiratory: Clear
Cardiac: S1/S2 and Regular Rhythm
GI: Soft, Non Tender, Non Distended and Normal Bowel Sounds
Musculoskeletal: No Clubbing, No Cyanosis, Edema, Left Lower Extremity and Edema, Right Lower Extremity
Skin: Warm and Rash (Left hand/wrist erythema,improving )
Neuro: AO x 3 and Nonfocal/grossly intact
Psych: Calm
Left wrist/hand erythema and swelling
would need to monitor closely for septic arthritis
ID following, stopped antibiotics
Orthopedics following
CXR noted; elevated CRP
MRI 10/07 with moderate to advanced degenerative changes. Soft tissue swelling in the dorsum of the wrist/hand. No osteomyelitis noted. no surgical intervention planned by ortho
hx of gout per patient; uric acid high, she has intolerance to allopurinol and colchicine per patient. Started prednisone /, now improving will discharge patient on total 7 days prednisone and to have her follow-up with PCP outpatient. Will also
provide orthopedics information in case her symptoms do not go back to baseline. Also will recommend rheumatology
- elevate left hand
- pain control
Permanent AFIB
- continue digoxin
- continue metoprolol
- continue eliquis
hyponatremia
montior
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 No weight gain
- continue lasix 20 daily
- continue metoprolol
- midodrine prn
Anemia
Continue to monitor
DVT PPX - on apixaban
Code status - full code
Anticipated Discharge: Today
Subjective/Interval History
-
Date of Service: October 09, 2024
Hand/wrist is much better
Objective Data
-
Labs:
Laboratory Results
10/09/24
05:12
WBC 6.8
Hgb 10.9 L
Hct 30.1 L
Plt Count 160
Sodium 134 L
Potassium 3.7
Chloride 98
Carbon Dioxide 30
BUN 13
Creatinine 0.7
Glucose 113 H
Calcium 8.4
Vital Signs:
Vital Signs
Temp Pulse Resp BP Pulse Ox
98 F 88 16 106/72 96
10/09/24 07:00 10/09/24 08:45 10/09/24 07:00 10/09/24 08:45 10/09/24 09:40
I&O
10/08/24 10/09/24 10/10/24
06:59 06:59 06:59
Intake Total 720 / 720 300 / 300
Balance 720 / 720 300 / 300
--- NOTE | 2024-10-09 10:33 | W.DCSUMMARY ---
Discharge Summary
Discharge Data
Date of Admission: 10/08/24
Date of Discharge: 10/09/24
-
Pending Results: No
Hospital Course
69-year-old female with past medical history of permanent atrial fibrillation, gout, dilated cardiomyopathy, anemia came to the hospital with left wrist/hand erythema and swelling. Initially there was concern of cellulitis and patient was started
on IV antibiotics. Patient was seen by infectious disease and orthopedics throughout hospitalization. Patient also had an MRI of the wrist/hand which showed moderate to advanced degenerative changes and soft tissue swelling. Patient uric acid was
also checked which was high. It was determined that patient symptoms could likely be secondary to acute gout flare. Patient was then started on prednisone which improved her symptoms. Infectious disease then recommended to monitor patient off
antibiotics. Since patient symptoms continue to improve on prednisone, patient was then discharged home with instructions to follow-up with all her physicians outpatient. On discharge patient instructed to follow-up with rheumatology as well
outpatient as she has been intolerant to colchicine and allopurinol in past.
Discharge Plan
-
Patient Disposition: Home (Routine Discharge)
Discharge Diagnosis/Procedures: Left wrist/hand erythema and swelling 2/2 acute gout flare
Permanent atrial fibrillation
Diet: As tolerated
Activity: With assistance
Driving Restrictions: As prior to admission
Bathing Restrictions: None
Referrals:
Steven Landrum DO [Active] -
Carolyn Madden MD [Active] -
Gerard Humphries MD [Active] -
Donta Villa MD [Family Provider] - in less than 1 week
Prescriptions:
New
acetaminophen 325 mg Tablet
650 mg PO Q4HPRN PRN (Reason: mild pain/PATEL/temp> 100.4F) Qty: 0 0RF
pantoprazole 40 mg Tablet,Delayed Release (Dr/Ec)
40 mg PO DAILY Qty: 30 0RF
prednisone 20 mg tablet
40 mg PO DAILY 6 Days Qty: 12 0RF
Continued
cyanocobalamin (vitamin B-12) 1,000 MCG tablet
1,000 mcg PO DAILY
folic acid 1 MG tablet
1 mg PO DAILY
Eliquis 5 MG tablet
5 mg PO BID
therapeutic multivitamin Tablet
1 tab PO DAILY
midodrine 5 mg Tablet
5 mg PO DAILYPRN PRN (Reason: blood pressure)
digoxin 125 mcg (0.125 mg) Tablet
125 mcg PO DAILY
furosemide 20 mg Tablet
20 mg PO DAILY
metoprolol succinate 25 mg Tablet Extended Release 24 Hr
25 mg PO DAILY
cholecalciferol (vitamin D3) 25 mcg (1,000 unit) Tablet
25 mcg PO DAILY
ferrous sulfate [FeroSul] 325 mg (65 mg iron) Tablet
325 mg PO DAILY Qty: 0 0RF
Discharge Orders:
Discharge Patient (As Directed); Ordered 10/09/24
Ordered By: Mohan Roland
Discharge Date and Time
Discharge Date/Time: 10/09/24 13:30
Print Language: SWEDISH
[2024-10-09] MEDS: LANOXIN 125 MCG PO (11:31)
[2024-10-09 12:00] VITALS: BP 102/60
--- NOTE | 2024-10-09 13:05 | CM ---
MD entered order for discharge.
Spoke with pt offered VN she declined.
Dgt will be driving her home.
PLAN Home no needs
== END 2024-10-09 13:30 | disposition home or self-care (01) | DRG 554 ==
LOC: 4 EAST ACU 08:20
PROVIDERS: ADMITTING PHYSICIAN Internal Medicine; ATTENDING PHYSICIAN Internal Medicine; CONSULT PHYSICIAN Orthopaedic Surgery; EMERGENCY PHYSICIAN Emergency Medicine; FAMILY PHYSICIAN Internal Medicine; OTHER PHYSICIAN Internal Medicine Infectious Disease
DX: M10.9 Gout, unspecified (principal); I48.21 Permanent atrial fibrillation; E87.1 Hypo-osmolality and hyponatremia; I42.0 Dilated cardiomyopathy; D64.9 Anemia, unspecified; N18.32 Chronic kidney disease, stage 3b; I12.9 Hypertensive chronic kidney disease with stage 1 through stage 4 chronic kidney disease, or unspecified chronic kidney disease; G43.909 Migraine, unspecified, not intractable, without status migrainosus; F17.210 Nicotine dependence, cigarettes, uncomplicated; Z91.040 Latex allergy status; Z79.01 Long term (current) use of anticoagulants; D45 Polycythemia vera; F41.9 Anxiety disorder, unspecified; Z79.899 Other long term (current) drug therapy; I95.1 Orthostatic hypotension; Z87.81 Personal history of (healed) traumatic fracture; H54.7 Unspecified visual loss; J44.9 Chronic obstructive pulmonary disease, unspecified; K21.9 Gastro-esophageal reflux disease without esophagitis; M18.12 Unilateral primary osteoarthritis of first carpometacarpal joint, left hand
CPT/HCPCS: 73110; 73221; 80048; 83605; 84550; 85025; 85027; 85652; 86140; 87040; 93005; 96374; 97162; 97166; 99285

== ENCOUNTER → 2024-11-25 10:26 | Outpatient (REF) | payer MEDICARE, BC, SELFPAY | LOC: HWRCS 10:26 | PROVIDERS: ATTENDING PHYSICIAN Nurse Practitioner Gerontology; FAMILY PHYSICIAN Internal Medicine | DX: I50.32 Chronic diastolic (congestive) heart failure (principal); I36.1 Nonrheumatic tricuspid (valve) insufficiency | CPT/HCPCS: 93306 ==

== ENCOUNTER → 2025-03-23 12:34 | Outpatient (REF) | payer MEDICARE, BC, SELFPAY | LOC: RAD 12:34 | PROVIDERS: ATTENDING PHYSICIAN Internal Medicine | DX: R74.8 Abnormal levels of other serum enzymes (principal); R74.01 Elevation of levels of liver transaminase levels; R63.0 Anorexia; R70.0 Elevated erythrocyte sedimentation rate | CPT/HCPCS: 74177; Q9967 ==